=== PATIENT | female | born 1980 | race Caucasian/White ===

== ENCOUNTER 2017-09-15 08:41 | Outpatient (CLI) | payer MEDICAID | END 2017-09-15 23:59 | disposition home or self-care (01) | LOC: RAD 08:41 | DX: R55 Syncope and collapse (principal) | CPT/HCPCS: 95819 ==

== ENCOUNTER 2017-12-31 13:51 | Inpatient (IN) | payer MEDICAID ==
[~2017-12-31] VITALS: Ht 175.3 cm; Wt 68.1 kg
[2017-12-31] MEDS ORDERED: normal saline 1000ML IV soln IVB ONE ×2 (15:20→15:25)
[2017-12-31] MEDS ORDERED: ondansetron/PF 4mg/2ml inj IV ONE (15:20)
[2017-12-31] MEDS ORDERED: LORazepam 2 mg/ml vial IV ONE ×3 (15:25→21:15)
[2017-12-31 15:41] LABS: BASOPHILS % (AUTO) 0 % (0-1); EOSINOPHILS % (AUTO) 0.8 % (0-6); HEMATOCRIT 28.5 % (35.0-45.0); HEMOGLOBIN 8.8 g/dl (12.0-16.0); LYMPHOCYTES # (AUTO) 0.7 X10'3 (1.1-4.8); LYMPHOCYTES % (AUTO) 18.2 % (21-51); MEAN CORPUSCULAR HEMOGLOBIN 25.8 PG (27.0-31.0); MEAN CORPUSCULAR HGB CONC 30.9 % (33.0-36.5); MEAN CORPUSCULAR VOLUME 83.3 FL (78-98); MEAN PLATELET VOLUME 7.2 FL (7.4-10.4); MONOCYTES # (AUTO) 0.4 X10'3 (0-0.9); MONOCYTES % (AUTO) 9.8 % (2-12); NEUTROPHILS # (AUTO) 2.7 X10'3 (1.8-7.7); NEUTROPHILS % (AUTO) 71.2 % (42-75); PLATELET COUNT 143 X10'3 (140-440); RED BLOOD COUNT 3.42 X10'6 (4.20-5.60); RED CELL DISTRIBUTION WIDTH 22.7 % (11.5-14.5); WHITE BLOOD COUNT 3.8 X10'3 (4.5-11.0)
[2017-12-31 15:52] LABS: NUCLEATED RED BLOOD CELLS 3 /100WBC (0-0); PLATELET ESTIMATE NORMAL; SMUDGE CELLS FEW; TOTAL CELLS COUNTED 100
[2017-12-31 15:53] LABS: ALANINE AMINOTRANSFERASE 111 U/L (12-78); ALBUMIN 4.5 G/DL (3.4-5.0); ALBUMIN/GLOBULIN RATIO 0.9 (1.1-1.5); ALKALINE PHOSPHATASE 98 IU/L (46-116); ANION GAP 25 (8-16); ASPARTATE AMINO TRANSFERASE 300 U/L (10-37); BILIRUBIN,TOTAL 0.9 MG/DL (0.1-1.0); BLOOD UREA NITROGEN 4 MG/DL (7-18); BUN/CREATININE RATIO 4.8 (6.6-38.0); CALCIUM 9.7 MG/DL (8.5-10.1); CHLORIDE 95 MMOL/L (99-107); CREATININE 0.83 MG/DL (0.40-0.90); GLUCOSE 118 MG/DL (70-104); HYPOCHROMASIA 1+; LIPASE 398 U/L (73-393); POLYCHROMASIA FEW; POTASSIUM 3.4 MMOL/L (3.5-5.1); SCHISTOCYTES FEW; SODIUM 136 MMOL/L (135-145); TOTAL CARBON DIOXIDE 16.5 MMOL/L (24-32); TOTAL PROTEIN 9.7 G/DL (6.4-8.2); eGFR 77 ML/MIN
[2017-12-31] MEDS ORDERED: ringers solution, lactated 1000ml IV soln IV ONE (16:05)
[2017-12-31 16:41] LABS: URINE HCG NEGATIVE (NEG)
[2017-12-31 16:43] LABS: CLARITY,URINE CLOUDY (Clear); COLOR,URINE YELLOW (Yellow); GLUCOSE, URINE NEGATIVE (Neg); KETONES,URINE >=80 mg/dl (Neg); LEUKOCYTE ESTERASE ,URINE NEGATIVE (Neg); NITRITES, URINE NEGATIVE (Neg); OCCULT BLOOD,URINE TRACE-INTACT (Neg); PROTEIN,URINE 100 mg/dl (Neg); UA COLLECTION TYPE CLN CATCH MIDSTREAM; UROBILINOGEN,URINE 0.2 E.U/dL (0.2-1.0)
[2017-12-31 16:46] LABS: URINE AMPHETAMINE SCREEN NEGATIVE (Neg); URINE BARBITUATE SCREEN NEGATIVE (Neg); URINE BENZODIAZEPINES SCREEN NEGATIVE (Neg); URINE CANNABINOID SCREEN NEGATIVE (Neg); URINE COCAINE SCREEN NEGATIVE (Neg); URINE METHADONE SCREEN NEGATIVE (Neg); URINE OPIATE SCREEN NEGATIVE (Neg); URINE PHENCYCLIDINE SCREEN NEGATIVE (Neg)
[2017-12-31 16:49] LABS: SQUAMOUS EPITHELIAL CELL,UR MANY /LPF (FEW)
[2017-12-31 16:50] LABS: MUCUS STRANDS MODERATE /LPF (Neg)
[2017-12-31 16:51] LABS: BACTERIA,URINE 2+ /HPF (Neg); RBC,URINE 0-2 /HPF (0-2)
[2017-12-31] MEDS ORDERED: ONDA4TAB6 PO (19:25)
[2017-12-31] MEDS ORDERED: SUCR1TAB34 PO (19:25)
[2017-12-31] MEDS ORDERED: phenobarbital sod 130mg/ml inj. IV ONE (21:20)
[2017-12-31] MEDS ORDERED: MAGN400C PO (21:53)
[2017-12-31] MEDS ORDERED: OMEG-86 PO (21:53)
[2017-12-31] MEDS ORDERED: LYSI500T3 PO (21:54)
[2017-12-31] MEDS ORDERED: magnesium hydroxide 30ml (MOM) UD suspension PO PRN (23:10)
[2017-12-31] MEDS ORDERED: mag hydrox/Alum hydrox/simeth 30ml oral suspension PO PRN (23:10)
[2017-12-31] MEDS ORDERED: ondansetron/PF 4mg/2ml inj IV PRN (23:10)
[2017-12-31] MEDS ORDERED: acetaminophen 325mg tablet PO PRN (23:10)
[2017-12-31] MEDS ORDERED: LORazepam 2 mg/ml vial IV PRN (23:20)
[2017-12-31] MEDS: normal saline 1000ml 1,000 ML IV SCH (23:29)
[2017-12-31] MEDS ORDERED: pantoprazole 40 MG vial IV ONE (23:30)
[2017-12-31] MEDS: thiamine 100mg/ml 2ml inj. IV ONE ×2 (23:36→23:41)
[2018-01-01 00:30] VITALS: BP 127/89
[2018-01-01 06:09] LABS: MEAN CORPUSCULAR HEMOGLOBIN 25.8 PG (27.0-31.0); MEAN CORPUSCULAR VOLUME 83.1 FL (78-98); MEAN PLATELET VOLUME 7.5 FL (7.4-10.4); PLATELET COUNT 88 X10'3 (140-440); RED BLOOD COUNT 2.49 X10'6 (4.20-5.60); RED CELL DISTRIBUTION WIDTH 22.4 % (11.5-14.5); WHITE BLOOD COUNT 2.5 X10'3 (4.5-11.0)
[2018-01-01 06:11] LABS: ALANINE AMINOTRANSFERASE 75 U/L (12-78); ALBUMIN/GLOBULIN RATIO 0.8 (1.1-1.5); ALKALINE PHOSPHATASE 67 IU/L (46-116); ANION GAP 19 (8-16); ASPARTATE AMINO TRANSFERASE 178 U/L (10-37); BLOOD UREA NITROGEN 2 MG/DL (7-18); BUN/CREATININE RATIO 2.5 (6.6-38.0); CALCIUM 7.9 MG/DL (8.5-10.1); CHLORIDE 101 MMOL/L (99-107); CREATININE 0.81 MG/DL (0.40-0.90); GLUCOSE 69 MG/DL (70-104); LIPASE 252 U/L (73-393); MAGNESIUM 1.4 MG/DL (1.5-2.4); POTASSIUM 3.4 MMOL/L (3.5-5.1); SODIUM 137 MMOL/L (135-145); TOTAL CARBON DIOXIDE 16.7 MMOL/L (24-32); TOTAL PROTEIN 6.8 G/DL (6.4-8.2); eGFR 79 ML/MIN
[2018-01-01 06:37] LABS: HEMATOCRIT 20.7 % (35.0-45.0); HEMOGLOBIN 6.4 g/dl (12.0-16.0)
[2018-01-01 06:52] LABS: ANISOCYTOSIS 3+; BANDS% (MANUAL) 1 % (0-10); BASOPHILS % (MANUAL) 1 % (0-1); LYMPHOCYTES % (MANUAL) 34 % (21-51); MONOCYTES % (MANUAL) 10 % (2-12); NEUTROPHILS % (MANUAL) 54 % (42-75); PLATELET ESTIMATE DECREASED; TOTAL CELLS COUNTED 100
[2018-01-01 06:54] LABS: HYPOCHROMASIA 1+; STOMATOCYTES 2+
[2018-01-01] MEDS ORDERED: magnesium 4gm in 100ml NS 100 ML IV PRN (07:05)
[2018-01-01] MEDS ORDERED: potassium Cl 20 mEq SR tablet PO PRN (07:05)
[2018-01-01] MEDS ORDERED: potassium Cl 40MEQ/NS 500ml 500 ML IV PRN ×2 (07:05)
[2018-01-01 07:17] VITALS: BP 119/89
[2018-01-01] MEDS ORDERED: folic acid 1mg tablet PO SCH (08:00)
[2018-01-01] MEDS ORDERED: thiamine 100mg tablet PO SCH (08:00)
[2018-01-01] MEDS ORDERED: CHOL10002 PO (08:30)
[2018-01-01 09:02] LABS: BASOPHILS % (AUTO) 0 % (0-1); EOSINOPHILS # (AUTO) 0.1 X10'3 (0-0.9); EOSINOPHILS % (AUTO) 2.4 % (0-6); HEMATOCRIT 22.6 % (35.0-45.0); HEMOGLOBIN 7.1 g/dl (12.0-16.0); LYMPHOCYTES # (AUTO) 0.6 X10'3 (1.1-4.8); MEAN CORPUSCULAR HEMOGLOBIN 25.9 PG (27.0-31.0); MEAN CORPUSCULAR HGB CONC 31.2 % (33.0-36.5); MEAN PLATELET VOLUME 7.2 FL (7.4-10.4); MONOCYTES # (AUTO) 0.3 X10'3 (0-0.9); MONOCYTES % (AUTO) 13.2 % (2-12); NEUTROPHILS # (AUTO) 1.2 X10'3 (1.8-7.7); NEUTROPHILS % (AUTO) 55.4 % (42-75); PLATELET COUNT 95 X10'3 (140-440); RED BLOOD COUNT 2.73 X10'6 (4.20-5.60); RED CELL DISTRIBUTION WIDTH 22.5 % (11.5-14.5); WHITE BLOOD COUNT 2.2 X10'3 (4.5-11.0)
[2018-01-01] MEDS: gabapentin 100mg capsule PO SCH ×3 (09:37→20:06)
[2018-01-01 09:39] LABS: ANISOCYTOSIS 3+; HYPOCHROMASIA 1+; PLATELET ESTIMATE INCREASED; STOMATOCYTES 2+; TOTAL CELLS COUNTED 100
[2018-01-01 09:40] LABS: POLYCHROMASIA FEW
[2018-01-01] MEDS: normal saline 1000ml 1,000 ML IV SCH ×2 (09:40→19:10)
[2018-01-01] MEDS: potassium Cl 20 mEq SR tablet PO PRN ×2 (10:18→20:47)
[2018-01-01] MEDS: magnesium Cl slow-release 64mg tablet PO PRN ×2 (10:18→20:47)
[2018-01-01 11:00] VITALS: BP 117/81
[2018-01-01] MEDS ORDERED: HYDROmorphone 1 mg/ml syringe IV PRN (11:30)
[2018-01-01 11:39] LABS: OCCULT BLOOD STOOL NEGATIVE (Neg)
[2018-01-01] MEDS: folic acid inj. 2 MG, thiamine inj. 100 MG, MVI, adult No.4 with vit. K 10 ML in dextro... IV SCH ×4 (14:34)
[2018-01-01] MEDS: LORazepam 2 mg/ml vial IV PRN (14:42)
[2018-01-01] MEDS ORDERED: PEG 3350/Na sulf,bicarb,Cl/KCl oral sol 4 liter bottle PO ONE (16:40)
[2018-01-01] MEDS: metoclopramide 5 mg/ml inj IV SCH ×2 (17:42→20:07)
[2018-01-01 18:00] VITALS: BP 112/79
[2018-01-02] VITALS (14 sets, daily range): BP systolic 107–123; BP diastolic 68–94
[2018-01-02] MEDS: metoclopramide 5 mg/ml inj IV SCH ×4 (02:07→19:52)
[2018-01-02] MEDS: potassium Cl 20 mEq SR tablet PO PRN (02:07)
[2018-01-02] MEDS: normal saline 1000ml 1,000 ML IV SCH ×2 (05:29→15:10)
[2018-01-02 06:12] LABS: ALANINE AMINOTRANSFERASE 75 U/L (12-78); ALBUMIN 3.1 G/DL (3.4-5.0); ALBUMIN/GLOBULIN RATIO 0.8 (1.1-1.5); ALKALINE PHOSPHATASE 72 IU/L (46-116); ANION GAP 11 (8-16); ASPARTATE AMINO TRANSFERASE 159 U/L (10-37); BILIRUBIN,TOTAL 0.8 MG/DL (0.1-1.0); BLOOD UREA NITROGEN 1 MG/DL (7-18); BUN/CREATININE RATIO 1.4 (6.6-38.0); CALCIUM 8.9 MG/DL (8.5-10.1); CHLORIDE 104 MMOL/L (99-107); CREATININE 0.72 MG/DL (0.40-0.90); GLUCOSE 116 MG/DL (70-104); LIPASE 256 U/L (73-393); MAGNESIUM 1.4 MG/DL (1.5-2.4); POTASSIUM 3.5 MMOL/L (3.5-5.1); SODIUM 140 MMOL/L (135-145); TOTAL CARBON DIOXIDE 24.9 MMOL/L (24-32); eGFR 90 ML/MIN
[2018-01-02 06:34] LABS: HEMATOCRIT 23.3 % (35.0-45.0); HEMOGLOBIN 7.3 g/dl (12.0-16.0); MEAN CORPUSCULAR HEMOGLOBIN 26.3 PG (27.0-31.0); MEAN CORPUSCULAR HGB CONC 31.1 % (33.0-36.5); MEAN CORPUSCULAR VOLUME 84.5 FL (78-98); MEAN PLATELET VOLUME 7.9 FL (7.4-10.4); PLATELET COUNT 92 X10'3 (140-440); RED BLOOD COUNT 2.76 X10'6 (4.20-5.60); RED CELL DISTRIBUTION WIDTH 21.3 % (11.5-14.5)
[2018-01-02] MEDS: gabapentin 100mg capsule PO SCH ×3 (07:29→20:37)
[2018-01-02] MEDS: folic acid inj. 2 MG, thiamine inj. 100 MG, MVI, adult No.4 with vit. K 10 ML in dextro... IV SCH ×4 (07:30)
[2018-01-02 07:48] LABS: TOTAL CELLS COUNTED 100
[2018-01-02 07:50] LABS: ANISOCYTOSIS 3+; PLATELET ESTIMATE DECREASED
[2018-01-02 07:51] LABS: HYPOCHROMASIA 1+; POLYCHROMASIA 1+; STOMATOCYTES 2+
[2018-01-02] MEDS ORDERED: multivitamins, therapeutics tablet PO SCH (08:00)
[2018-01-02] MEDS ORDERED: LIDOcaine Viscous 15ml cup ONE (10:52)
[2018-01-02] MEDS ORDERED: fentaNYL/PF 50MCG/1 ML 2ML syringe ONE ×2 (10:52→11:58)
[2018-01-02] MEDS ORDERED: MIDAZolam 5mg/5ml vial ONE ×2 (10:52→11:58)
[2018-01-02] MEDS: LORazepam 2 mg/ml vial IV PRN (19:53)
[2018-01-02] MEDS: diatr meglu/diatrizoate 30ml oral sol.-(3 dose) bottle PO SCH (20:37)
[2018-01-02] MEDS: magnesium/D5W IVPB 100 ML IV PRN (22:43)
[2018-01-02] MEDS ORDERED: LORazepam 2 mg/ml vial IV PRN (23:20)
[2018-01-03] VITALS: BP 97/61
[2018-01-03] MEDS: magnesium/D5W IVPB 100 ML IV PRN (00:36)
[2018-01-03] MEDS: metoclopramide 5 mg/ml inj IV SCH ×3 (01:59→14:00)
[2018-01-03] MEDS: normal saline 1000ml 1,000 ML IV SCH (02:00)
[2018-01-03 06:27] LABS: ALANINE AMINOTRANSFERASE 57 U/L (12-78); ALBUMIN 2.7 G/DL (3.4-5.0); ALBUMIN/GLOBULIN RATIO 0.8 (1.1-1.5); ALKALINE PHOSPHATASE 66 IU/L (46-116); ANION GAP 6 (8-16); ASPARTATE AMINO TRANSFERASE 77 U/L (10-37); BILIRUBIN,TOTAL 0.7 MG/DL (0.1-1.0); BLOOD UREA NITROGEN 1 MG/DL (7-18); CALCIUM 8.3 MG/DL (8.5-10.1); CHLORIDE 107 MMOL/L (99-107); CREATININE 0.51 MG/DL (0.40-0.90); GLUCOSE 102 MG/DL (70-104); LIPASE 202 U/L (73-393); MAGNESIUM 2.2 MG/DL (1.5-2.4); POTASSIUM 3.2 MMOL/L (3.5-5.1); SODIUM 141 MMOL/L (135-145); TOTAL PROTEIN 6.3 G/DL (6.4-8.2); eGFR > 90 ML/MIN
[2018-01-03 06:52] LABS: MEAN CORPUSCULAR HEMOGLOBIN 26.3 PG (27.0-31.0); MEAN CORPUSCULAR HGB CONC 31.2 % (33.0-36.5); MEAN CORPUSCULAR VOLUME 84.4 FL (78-98); MEAN PLATELET VOLUME 8.3 FL (7.4-10.4); PLATELET COUNT 107 X10'3 (140-440); RED BLOOD COUNT 2.55 X10'6 (4.20-5.60); RED CELL DISTRIBUTION WIDTH 23.8 % (11.5-14.5); WHITE BLOOD COUNT 2.3 X10'3 (4.5-11.0)
[2018-01-03 06:56] VITALS: BP 117/76
[2018-01-03 07:02] LABS: HEMATOCRIT 21.6 % (35.0-45.0); HEMOGLOBIN 6.7 g/dl (12.0-16.0)
[2018-01-03] MEDS: diatr meglu/diatrizoate 30ml oral sol.-(3 dose) bottle PO SCH ×2 (07:18→09:04)
[2018-01-03] MEDS: gabapentin 100mg capsule PO SCH ×2 (07:23→12:39)
[2018-01-03] MEDS: potassium Cl 20 mEq SR tablet PO PRN ×2 (07:23→12:39)
[2018-01-03 07:30] LABS: TOTAL CELLS COUNTED 100
[2018-01-03 07:31] LABS: ANISOCYTOSIS 3+; HYPOCHROMASIA 1+; PLATELET ESTIMATE DECREASED; POLYCHROMASIA 1+; STOMATOCYTES 2+
[2018-01-03] MEDS ORDERED: folic acid 1mg tablet PO SCH (08:00)
[2018-01-03] MEDS ORDERED: thiamine 100mg tablet PO SCH (08:00)
[2018-01-03] MEDS ORDERED: multivitamins, therapeutics tablet PO SCH (08:00)
[2018-01-03] MEDS ORDERED: iohexol 300mg/ml 100ml inj. ONE (09:00)
[2018-01-03] MEDS ORDERED: iohexol 300 MG/1 ML 50ml polymer ONE (09:49)
[2018-01-03] MEDS ORDERED: LORazepam 2 mg/ml vial IV PRN (11:50)
[2018-01-03] MEDS ORDERED: LORazepam 1 MG tablet PO PRN (11:50)
[2018-01-03 12:00] VITALS: BP 127/91
[2018-01-03] MEDS ORDERED: FE F1TAB7 PO (12:17)
[2018-01-03] MEDS ORDERED: GABA100C PO (14:51)
[2018-01-04] MEDS ORDERED: LORazepam 1 MG tablet PO PRN (23:20)
[2018-01-05] MEDS ORDERED: LORazepam 1 MG tablet PO PRN (11:50)
[2018-01-05] MEDS ORDERED: LORazepam 2 mg/ml vial IV PRN (11:50)
== END 2018-01-03 17:12 | disposition home or self-care (01) | DRG 241 ==
LOC: ER 13:52 → ED HOLD 23:10 → SUR 3N 23:59
PROVIDERS: ADMIT Internal Medicine; ATTEND Family Medicine
PROC: 0DB98ZX Excision of Duodenum, Via Natural or Artificial Opening Endoscopic, Diagnostic (ICD-10-PCS; 2018-01-02)
PROC: 0DJD8ZZ Inspection of Lower Intestinal Tract, Via Natural or Artificial Opening Endoscopic (ICD-10-PCS; 2018-01-02)
PROC: BW251ZZ Computerized Tomography (CT Scan) of Chest, Abdomen and Pelvis using Low Osmolar Contrast (ICD-10-PCS; principal; 2018-01-03)
DX: K29.70 Gastritis, unspecified, without bleeding (principal); D61.818 Other pancytopenia; E87.3 Alkalosis; E87.2 Acidosis; K85.90 Acute pancreatitis without necrosis or infection, unspecified; E86.0 Dehydration; D63.8 Anemia in other chronic diseases classified elsewhere; F10.229 Alcohol dependence with intoxication, unspecified; Z88.6 Allergy status to analgesic agent; Z88.2 Allergy status to sulfonamides; Z88.8 Allergy status to other drugs, medicaments and biological substances
CPT/HCPCS: 36415; 43239; 45378; 71260; 74177; 80053; 80305; 80320; 81001; 81025; 82272; 82948; 83605; 83690; 83735; 85025; 86885; 86900; 86901; 86920; 87070; 93005; 96361; 96374; 96375; 96376; 99285; A4620; C9113; G0500; J2060; J2250; J2405; J2560; J2765; J3010; J3411; J3475; J3490; J7030; J7060; J7120; Q9963; Q9967